=== PATIENT | male | born 1945 | race Caucasian/White ===

== ENCOUNTER 2024-02-21 11:21 | Inpatient (IN) ==
[2024-02-21] MEDS ORDERED: IOPAMIDOL 100 ML BOTTLE IV ONE (11:22)
[2024-02-21 12:06] LABS: Basophils # (Auto) 0.01 K/mcL (0.00-0.30); Basophils % (Auto) 0.2 % (0.0-2.0); Eosinophils # (Auto) 0.07 K/mcL (0.00-0.70); Eosinophils % (Auto) 1.4 % (0.0-7.0); Hematocrit 32.4 % (40.1-51.0); Hemoglobin 10.2 g/dL (13.7-17.5); Lymphocytes # (Auto) 1.14 K/mcL (1.50-4.80); Lymphocytes % (Auto) 22.1 % (15.5-49.0); Mean Cell Volume 97.3 fL (80.0-100.0); Mean Corpuscular HGB Conc 31.5 g/dL (31.0-36.0); Monocytes # (Auto) 0.59 K/mcL (0.10-0.90); Monocytes % (Auto) 11.5 % (1.0-12.0); Neutrophils % (Auto) 63.6 % (38.0-78.0); Platelet Count 181 K/mcL (140-440); RBC 3.33 M/mcL (4.63-6.08); Red Cell Distribution Width 16.3 % (11.5-14.5); WBC 5.2 K/mcL (4.5-11.0)
[2024-02-21 12:42] LABS: ALT/SGPT 6 U/L (<40); AST/SGOT 17 U/L (<40); Albumin/Globulin Ratio 1.3 (1.0-2.3); Alkaline Phosphatase 45 U/L (39-117); Bilirubin,Total < 0.2 mg/dL (0.1-1.0); Blood Urea Nitrogen 21 mg/dL (8-23); Calcium 9.3 mg/dL (8.6-10.4); Carbon Dioxide 27 mmol/L (22-30); Chloride 98 mmol/L (96-108); Glomerular Filtration Rate 52; Glucose 110 mg/dL (70-105); Potassium 4.5 mmol/L (3.3-5.1); Sodium 135 mmol/L (133-145)
[2024-02-21] MEDS: metroNIDAZOLE 500 MG/100 ML BAG IV ONE (15:30)
[2024-02-21] MEDS: CIPROFLOXACIN 400 MG/200 ML BAG IV ONE (15:30)
[2024-02-21] MEDS ORDERED: SENNOSIDES 1 TABLET PO PRN (16:47)
[2024-02-21] MEDS ORDERED: MAG HYDROX/AL HYDROX/SIMETH 30 ML ORAL.SUSP PO PRN (16:47)
[2024-02-21] MEDS ORDERED: ONDANSETRON 4 MG/2 ML VIAL IV PRN (16:47)
[2024-02-21] MEDS ORDERED: POLYETHYLENE GLYCOL 3350 17 GM PACKET PO PRN (16:47)
[2024-02-21] MEDS ORDERED: IPRATROPIUM/ALBUTEROL 3 ML AMPUL.NEB NEB PRN (16:47)
[2024-02-21] MEDS ORDERED: ACETAMINOPHEN 325 MG TABLET PO PRN (16:47)
[2024-02-21] MEDS: DOXYCYCLINE 100 MG in DEXTROSE 5% IN WATER 100 ML IV SCH (17:57)
[2024-02-21] MEDS: OMEPRAZOLE 20 MG CAPSULE PO SCH (17:57)
[2024-02-21] MEDS: metroNIDAZOLE 500 MG/100 ML BAG IV SCH (17:59)
[2024-02-21] MEDS ORDERED: DOXYCYCLINE 100 MG in DEXTROSE 5% IN WATER 100 ML IV SCH (18:45)
[2024-02-21] MEDS ORDERED: BISACODYL 10 MG SUPP.RECT PR PRN (19:10)
[2024-02-21] MEDS ORDERED: ARTIFICIAL TEARS OPHTHALMIC PRN (19:10)
[2024-02-21] MEDS ORDERED: MAGNESIUM HYDROXIDE 30 ML ORAL.SUSP PO PRN (19:10)
[2024-02-21] MEDS ORDERED: [UNRECOGNIZED DRUG - OTHER] TOPICAL PRN (19:10)
[2024-02-21] MEDS ORDERED: SIMETHICONE 80 MG TAB.CHEW PO PRN (19:46)
[2024-02-21] MEDS: LACTOBACILLUS 1 CAPSULE PO SCH (20:15)
[2024-02-21] MEDS: traZODone HCL 50 MG TABLET PO SCH (20:15)
[2024-02-21] MEDS: SUCRALFATE 1 GM TABLET PO SCH (20:15)
[2024-02-21] MEDS: oxyCODONE IR 5 MG TABLET PO PRN (20:16)
[2024-02-21] MEDS: guaiFENesin 600 MG TAB.SR.12H PO PRN (20:16)
[2024-02-21] MEDS: MAGNESIUM OXIDE 400 MG TABLET PO SCH (20:16)
[2024-02-21] MEDS: guaiFENesin/DEXTROMETHORPHAN 5ML UD CUP PO PRN (20:32)
[2024-02-21] MEDS ORDERED: SUCRALFATE 1 GM TABLET PO SCH (21:00)
[2024-02-22] MEDS: 0.9 % SODIUM CHLORIDE 10 ML SYRINGE IV SCH ×2 (00:26→20:09)
[2024-02-22] MEDS: CIPROFLOXACIN 400 MG/200 ML BAG IV SCH (00:26)
[2024-02-22 06:14] LABS: Basophils # (Auto) 0.01 K/mcL (0.00-0.30); Basophils % (Auto) 0.2 % (0.0-2.0); Eosinophils # (Auto) 0.07 K/mcL (0.00-0.70); Eosinophils % (Auto) 1.5 % (0.0-7.0); Hematocrit 31.6 % (40.1-51.0); Hemoglobin 10.1 g/dL (13.7-17.5); Lymphocytes # (Auto) 0.88 K/mcL (1.50-4.80); Lymphocytes % (Auto) 18.8 % (15.5-49.0); Mean Cell Volume 96.6 fL (80.0-100.0); Mean Platelet Volume 11.2 fL (8.8-12.5); Monocytes # (Auto) 0.68 K/mcL (0.10-0.90); Monocytes % (Auto) 14.5 % (1.0-12.0); Neutrophils % (Auto) 64.1 % (38.0-78.0); Platelet Count 199 K/mcL (140-440); RBC 3.27 M/mcL (4.63-6.08); Red Cell Distribution Width 15.9 % (11.5-14.5); WBC 4.7 K/mcL (4.5-11.0)
[2024-02-22 06:40] LABS: Blood Urea Nitrogen 19 mg/dL (8-23); C-Reactive Protein 1.98 mg/dL (0.03-0.80); Calcium 9.3 mg/dL (8.6-10.4); Carbon Dioxide 28 mmol/L (22-30); Chloride 98 mmol/L (96-108); Glomerular Filtration Rate 52; Glucose 102 mg/dL (70-105); Potassium 4.3 mmol/L (3.3-5.1); Sodium 136 mmol/L (133-145)
[2024-02-22] MEDS: CYANOCOBALAMIN (VITAMIN B-12) 500 MCG TABLET PO SCH (08:49)
[2024-02-22] MEDS: METOPROLOL SUCCINATE 25 MG TAB.XL.24H PO SCH (08:49)
[2024-02-22] MEDS: SPIRONOLACTONE 25 MG TABLET PO SCH (08:49)
[2024-02-22] MEDS: ENOXAPARIN 40 MG/0.4 ML SYRINGE SQ SCH (08:49)
[2024-02-22] MEDS: CETIRIZINE 10 MG TABLET PO SCH (08:49)
[2024-02-22] MEDS: MULTIVIT,THER IRON,CA,FA & MIN 1 TABLET PO SCH (08:49)
[2024-02-22] MEDS: FUROSEMIDE 20 MG TABLET PO SCH (08:49)
[2024-02-22] MEDS: VITAMIN D3 25 MCG TABLET PO SCH (08:50)
[2024-02-22] MEDS: ALFUZOSIN 10 MG PO SCH (08:50)
[2024-02-22] MEDS: Tiotropium Bromide [Spiriva Respimat] 2.5 mcg Inhaler INH SCH (08:50)
[2024-02-23 06:09] LABS: Basophils # (Auto) 0.01 K/mcL (0.00-0.30); Basophils % (Auto) 0.2 % (0.0-2.0); Eosinophils # (Auto) 0.09 K/mcL (0.00-0.70); Eosinophils % (Auto) 1.7 % (0.0-7.0); Hemoglobin 10.7 g/dL (13.7-17.5); Lymphocytes # (Auto) 0.94 K/mcL (1.50-4.80); Mean Cell Volume 97.1 fL (80.0-100.0); Mean Corpuscular HGB Conc 31.5 g/dL (31.0-36.0); Mean Platelet Volume 10.8 fL (8.8-12.5); Monocytes # (Auto) 0.75 K/mcL (0.10-0.90); Monocytes % (Auto) 14.3 % (1.0-12.0); Neutrophils % (Auto) 64.7 % (38.0-78.0); Platelet Count 197 K/mcL (140-440); Red Cell Distribution Width 15.7 % (11.5-14.5); WBC 5.2 K/mcL (4.5-11.0)
[2024-02-23 06:26] LABS: C-Reactive Protein 1.51 mg/dL (0.03-0.80)
[2024-02-23 06:44] LABS: Blood Urea Nitrogen 23 mg/dL (8-23); Calcium 9.5 mg/dL (8.6-10.4); Carbon Dioxide 25 mmol/L (22-30); Chloride 98 mmol/L (96-108); Glomerular Filtration Rate 48; Glucose 102 mg/dL (70-105); Potassium 4.1 mmol/L (3.3-5.1); Sodium 138 mmol/L (133-145)
[2024-02-23] MEDS: CIPROFLOXACIN 500 MG TABLET PO SCH (09:45)
[2024-02-23] MEDS: DOXYCYCLINE HYCLATE 100 MG TABLET.ORL PO SCH (09:49)
[2024-02-23] MEDS: metroNIDAZOLE 500 MG TABLET PO SCH (13:58)
[2024-02-23] MEDS: TRIAMCINOLONE CREAM 0.1% 15G 1 DOSE TUBE TOPICAL PRN (20:50)
[2024-02-24 06:36] LABS: C-Reactive Protein 1.46 mg/dL (0.03-0.80)
[2024-02-24 06:37] LABS: Blood Urea Nitrogen 26 mg/dL (8-23); Calcium 9.2 mg/dL (8.6-10.4); Carbon Dioxide 26 mmol/L (22-30); Chloride 99 mmol/L (96-108); Glomerular Filtration Rate 48; Glucose 107 mg/dL (70-105); Potassium 3.9 mmol/L (3.3-5.1); Sodium 138 mmol/L (133-145)
[2024-02-24 06:39] LABS: Basophils # (Auto) 0.02 K/mcL (0.00-0.30); Basophils % (Auto) 0.5 % (0.0-2.0); Eosinophils # (Auto) 0.08 K/mcL (0.00-0.70); Eosinophils % (Auto) 1.8 % (0.0-7.0); Hematocrit 33.7 % (40.1-51.0); Hemoglobin 10.7 g/dL (13.7-17.5); Lymphocytes % (Auto) 20.4 % (15.5-49.0); Mean Corpuscular HGB Conc 31.8 g/dL (31.0-36.0); Monocytes # (Auto) 0.78 K/mcL (0.10-0.90); Monocytes % (Auto) 17.6 % (1.0-12.0); Neutrophils % (Auto) 58.3 % (38.0-78.0); Platelet Count 194 K/mcL (140-440); RBC 3.51 M/mcL (4.63-6.08); Red Cell Distribution Width 15.7 % (11.5-14.5); WBC 4.4 K/mcL (4.5-11.0)
[2024-02-27 17:51] LABS: Lyme Ab Screen <0.90 INDEX
== END 2024-02-24 09:30 | DRG 603 ==
LOC: ED 11:21 → MEDSUR 16:36
PROVIDERS: ADMIT Student in an Organized Health Care Education/Training Program; ATTEND Student in an Organized Health Care Education/Training Program